=== PATIENT | female | born 1960 | race American Indian/Alaskan Native ===

== ENCOUNTER 2017-05-04 18:26 | Emergency (ER) | payer OTHER ==
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
[2017-05-04] MEDS ORDERED: MOTRIN PO ONE (22:06)
[2017-05-04] MEDS ORDERED: FLEXERIL PO ONE (22:11)
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
[2017-05-05 01:22] VITALS: BP 133/88
== END 2017-05-05 00:50 | disposition home or self-care (01) ==
LOC: ED 18:26
DX: S16.1XXA Strain of muscle, fascia and tendon at neck level, initial encounter (principal); M54.6 Pain in thoracic spine; I10 Essential (primary) hypertension; F41.9 Anxiety disorder, unspecified; V49.59XA Passenger injured in collision with other motor vehicles in traffic accident, initial encounter; Y93.89 Activity, other specified; Y99.9 Unspecified external cause status; Y92.410 Unspecified street and highway as the place of occurrence of the external cause
CPT/HCPCS: 71020; 72040; 72070; 72100; 99283